=== PATIENT | male | born 1975 | race Hispanic/Latino ===

== ENCOUNTER 2016-04-16 00:53 | Emergency (ER) | payer OTHER ==
[~2016-04-16] VITALS: Ht 179.1 cm; Wt 140.6 kg
[~2016-04-16 00:53] MED LIST: ANTIVERT 25 MG25 MG PO; NOVAPLUS V0.09 MG/Ac INH
[2016-04-16 01:13] VITALS: BP 142/95
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
[2016-04-16] MEDS ORDERED: REGLAN10 M1 PO (01:55)
[2016-04-16] MEDS ORDERED: AMOXICILLIN875 M1 PO (01:55)
[2016-04-16] MEDS ORDERED: PEPCID20 M1 PO (01:55)
[2016-04-16] MEDS ORDERED: FLONASE ALLERG9.9 ML NASB (01:55)
[2016-04-16] MEDS ORDERED: PREDNISONE20 M1 PO (01:55)
== END 2016-04-16 02:05 ==
LOC: ERH 00:53
DX: J32.9 Chronic sinusitis, unspecified (principal); K21.9 Gastro-esophageal reflux disease without esophagitis; Z87.891 Personal history of nicotine dependence